=== PATIENT | female | born 1995 | race Caucasian/White ===

== ENCOUNTER 2016-05-22 17:01 | Emergency (ER) | payer SELFPAY ==
--- NOTE | 2016-05-22 17:59 | RAD ---
CHEST 2 VIEWS HISTORY: Cough x2 days. Frontal and lateral chest radiographs dated 05/22/2016. COMPARISON: 01/23/2015 FINDINGS: LUNG VOLUMES: Hyperinflation. FOCAL AIRSPACE OPACITY: No gross airspace consolidation. PLEURAL EFFUSION: None. BRONCHOVASCULAR MARKINGS: Mildly coarsened with peribronchial cuffing. CARDIOMEDIASTINAL SILHOUETTE: Nonenlarged. PNEUMOTHORAX: None identified. OSSEOUS STRUCTURES: No grossly destructive lesions. IMPRESSION: Coarsened markings which may indicate bronchitis, atypical/viral infection, or central airways disease. Hyperinflation suggests obstructive pulmonary process. No jessica airspace consolidation at this time.
[2016-05-22] MEDS ORDERED: ACETAMINOPHEN 325 MG TABLET ONE (18:30)
== END 2016-05-22 18:45 | disposition home or self-care (01) ==
LOC: ED 17:01
DX: J09.X2 Influenza due to identified novel influenza A virus with other respiratory manifestations (principal); R05 Cough
CPT/HCPCS: 71020; 87804; 99283 ×2; A9270

== ENCOUNTER 2016-07-18 09:20 | Emergency (ER) | payer OTHER ==
[2016-07-18] MEDS ORDERED: LACTATED RINGERS 1,000 ML ONE (10:41)
[2016-07-18 10:54] LABS: ABSOLUTE NEUTROPHIL COUNT 4.7 K/mm3 (1.8-7.7); BASO % 0.5 % (0.2-1.0); EOS % 0.6 % (0.9-2.9); HEMATOCRIT 34.4 % (37.0-47.0); IMM NEUT% 0.5 % (0-1); LYMPH # 1.3 (1.0-4.8); LYMPH % 19.7 % (15-45); MEAN CELL VOLUME 85.6 fl (81.0-99.0); MEAN CORPUSCULAR HEMOGLOBIN 27.4 pg (27.0-31.0); MEAN PLATELET VOLUME 9.9 fl (7.4-10.4); MONO # 0.4 (0.0-0.8); MONO % 6.4 % (4-12); NEUT % 72.3 % (43-75); PLATELET COUNT 197 K/mm3 (130-400); RED CELL DISTRIBUTION WIDTH 15.2 % (11.5-14.5)
[2016-07-18 11:07] LABS: ALB/GLOB RATIO 1.5 (>1.0); ALBUMIN 4.2 gm/dL (3.5-5.7); CALCIUM 9.3 mg/dL (8.6-10.3)
[2016-07-18 11:24] LABS: TROPONIN I < 0.01 ng/ml (0.0-0.06)
--- NOTE | 2016-07-18 11:42 | US ---
OB COMP <14 WKS, OB TRANSVAGINAL CLINICAL HISTORY: Gestational age 7 weeks 3 days. LMP 05/27/2016. ETHEL 03/03/2017. . Pelvic pain and . COMPARISON: None TECHNIQUE: Transabdominal and transvaginal. FINDINGS: Uterus: Single intrauterine gestation. Gestational sac size and shape: Normal size and shape. Mean sac diameter: 3.0 cm = 7 weeks 6 days. [place] rump length: 1.7 cm = 8 weeks 1 days. Estimated date of confinement: 02/26/2017 Embryo: Yes Yolks sac: Yes heart tones: Yes 164 Beats per minute Somatic motion: Not applicable. Placenta: Too early to comment. Previa: Too early comment. Sharon-gestational bleed: None. Right ovary: 3.9 x 1.9 x 4.1 cm. Normal blood flow. 1.7 x 1.9 x 1.6 cm paraovarian cyst. Left ovary: 3.2 x 1.3 x 1.9 cm. Normal blood flow. Impression: 1. Live intrauterine gestation. Gestational age 8 weeks 1 day. EDC 02/26/2017. 2. No perigestational bleed. 3. Normal ovaries. 1.7 x 1.9 x 1.6 cm right paraovarian cyst. Report was sent to the emergency department electronic medical record system 07/18/2016 11:44
--- NOTE | 2016-07-18 11:53 | RAD ---
History: Chest pain. Comparison: 05/22/2016. Technique: 2 views Findings: The soft tissue and bony structures are unremarkable. The heart size is appropriate. No infiltrate, effusion or pneumothorax is observed. The hilar and mediastinal structures are normal. Impression: 1. A negative 2 view chest
[2016-07-18 12:31] LABS: URINE BILIRUBIN NEGATIVE (NEGATIVE); URINE BLOOD NEGATIVE (NEGATIVE); URINE GLUCOSE (UA) NEGATIVE (NEGATIVE); URINE LEUKOCYTE ESTERASE NEGATIVE (NEGATIVE); URINE NITRITE NEGATIVE (NEGATIVE); URINE PROTEIN NEGATIVE (NEGATIVE); URINE UROBILINOGEN NORMAL (0-1 mg/dl)
[2016-07-18 12:33] LABS: URINE APPEARANCE CLEAR; URINE COLOR YELLOW
== END 2016-07-18 12:50 | disposition home or self-care (01) ==
LOC: ED 09:20
DX: O26.891 Other specified pregnancy related conditions, first trimester (principal); R07.9 Chest pain, unspecified; R42 Dizziness and giddiness; Z3A.08 8 weeks gestation of pregnancy
CPT/HCPCS: 85379; 84702; 85025; 80053; 83735; 84100; 81003; 84484; 76817; 76801; 71020; 99284; 96360; 99283; J7120

== ENCOUNTER 2016-08-18 13:16 | Emergency (ER) | payer OTHER ==
[2016-08-18 14:22] LABS: BASO % 0.4 % (0.2-1.0); EOS # 0.1 (0.0-0.5); EOS % 1.4 % (0.9-2.9); HEMATOCRIT 33.1 % (37.0-47.0); HEMOGLOBIN 10.9 gm/l (12.0-16.0); IMM NEUT% 0.2 % (0-1); LYMPH # 1.2 (1.0-4.8); LYMPH % 21.5 % (15-45); MEAN CELL VOLUME 85.1 fl (81.0-99.0); MEAN CORPUSCULAR HGB CONC 32.9 g/dl (33.0-37.0); MEAN PLATELET VOLUME 9.3 fl (7.4-10.4); MONO # 0.3 (0.0-0.8); MONO % 4.9 % (4-12); NEUT % 71.6 % (43-75); PLATELET COUNT 198 K/mm3 (130-400); RED CELL DISTRIBUTION WIDTH 15.9 % (11.5-14.5)
[2016-08-18 14:25] LABS: URINE APPEARANCE HAZY; URINE BILIRUBIN NEGATIVE (NEGATIVE); URINE BLOOD NEGATIVE (NEGATIVE); URINE COLOR YELLOW; URINE GLUCOSE (UA) NEGATIVE (NEGATIVE); URINE LEUKOCYTE ESTERASE NEGATIVE (NEGATIVE); URINE NITRITE NEGATIVE (NEGATIVE); URINE PROTEIN NEGATIVE (NEGATIVE); URINE UROBILINOGEN NORMAL (0-1 mg/dl)
[2016-08-18 14:43] LABS: ALB/GLOB RATIO 1.4 (>1.0); ALBUMIN 3.9 gm/dL (3.5-5.7); BLOOD UREA NITROGEN 5 mg/dL (7-25); BUN/CREATININE RATIO 10 (6-20); GLOMERULAR FILTRATION RATE 154 mL/min (60-116)
[2016-08-18 14:48] LABS: ALT/SGPT < 5 U/L (7-52)
== END 2016-08-18 15:53 | disposition home or self-care (01) ==
LOC: ED 13:16
DX: O26.891 Other specified pregnancy related conditions, first trimester (principal); R10.9 Unspecified abdominal pain; O99.331 Smoking (tobacco) complicating pregnancy, first trimester; F17.210 Nicotine dependence, cigarettes, uncomplicated; Z3A.12 12 weeks gestation of pregnancy